=== PATIENT | female | born 2000 | race Caucasian/White ===

== ENCOUNTER → 2021-04-24 | Outpatient (CLI) | payer MEDICAID ==
[2021-04-24] VITALS (18 sets, daily range): BP systolic 97–125; BP diastolic 50–77
== END | disposition home or self-care (01) ==
LOC: CARD DIAG 13:50
PROVIDERS: ATTEND Nurse Practitioner Family
DX: R42 Dizziness and giddiness (principal); I95.1 Orthostatic hypotension
CPT/HCPCS: 93660